=== PATIENT | female | born 1990 | race Caucasian/White ===

== ENCOUNTER 2022-09-28 18:05 | Inpatient (IN) ==
[2022-09-28] MEDS ORDERED: miSOPROStoL 200 MCG TABLET RECTAL PRN (18:34)
[2022-09-28] MEDS ORDERED: METHYLERGONOVINE 0.2 MG/1 ML AMP IM PRN (18:34)
[2022-09-28] MEDS ORDERED: ONDANSETRON 4 MG/2 ML VIAL IV PRN (18:34)
[2022-09-28] MEDS ORDERED: TRANEXAMIC ACID 1,000 MG in SODIUM CHLORIDE 0.9% 100 ML IV PRN (18:34)
[2022-09-28] MEDS ORDERED: BUTORPHANOL 2 MG/ML VIAL IV PRN (18:34)
[2022-09-28] MEDS ORDERED: MEPERIDINE 25 MG/1 ML VIAL IV PRN ×2 (18:34→18:54)
[2022-09-28] MEDS ORDERED: CARBOPROST TROMETHAMINE 250 MCG/ML AMP IM PRN (18:34)
[2022-09-28] MEDS ORDERED: OXYTOCIN/LR 20 UNIT/1,000 ML BAG IV ONE (18:34)
[2022-09-28] MEDS ORDERED: OXYTOCIN/LR 20 UNIT/1,000 ML BAG IV SCH (19:00)
[2022-09-28 19:26] LABS: Basophils % 0.4 % (0.0-0.8); Eosinophils # 0.1 10*3/uL (0.0-0.87); Eosinophils % 0.7 % (0.00-10.9); Hematocrit 39.2 VOL% (35.7-47.0); Hemoglobin 12.9 GM/DL (12.0-16.0); Immature Granulocytes % 1.1 %; Lymphocytes # 2.7 10*3/uL (1.4-4.0); Lymphocytes % 29.9 % (21.3-54.2); Mean Corpuscular HGB Conc 32.9 GM/DL (32-36); Mean Platelet Volume 14.2 FL (9.6-12.0); Monocytes # 0.6 10*3/uL (0.11-0.8); Monocytes % 6.2 % (1.7-12.7); Neutrophils % 61.7 % (38.7-73.9); Platelet Count 125 T/CUMM (130-400); Red Blood Count 4.61 MC/CUMM (3.8-5.5); Red Cell Distribution Width 13.2 % (9.3-17.3); White Blood Count 8.9 T/CUMM (4-12)
[2022-09-28] MEDS: LACTATED RINGERS 1,000 ML IV SCH (23:08)
[2022-09-29] MEDS ORDERED: ONDANSETRON 4 MG/2 ML VIAL IV ONE (00:54)
[2022-09-29] MEDS ORDERED: ePHEDrine 50 MG/ML VIAL IV PRN (00:54)
[2022-09-29] MEDS ORDERED: PROMETHAZINE 25 MG/1 ML VIAL IM ONE (00:54)
[2022-09-29] MEDS ORDERED: FAMOTIDINE 20 MG/2 ML VIAL IV ONE (00:54)
[2022-09-29] MEDS ORDERED: NALOXONE 0.4 MG/ML VIAL IV PRN (00:54)
[2022-09-29] MEDS ORDERED: CITRIC ACID/SODIUM CITRATE 30 ML UDCUP PO ONE (00:54)
[2022-09-29] MEDS ORDERED: hydrOXYzine HCL 25 MG/1 ML VIAL IM PRN (00:54)
[2022-09-29] MEDS ORDERED: diphenhydrAMINE 50 MG/1 ML VIAL IV PRN ×2 (00:54)
[2022-09-29] MEDS: fentaNYL 2 MCG/ROPIV 0.2% EPID 100 ML EPIDURAL SCH ×3 (01:50→13:21)
[2022-09-29] MEDS: LACTATED RINGERS 1,000 ML IV SCH ×2 (01:54→08:10)
[2022-09-29] MEDS ORDERED: ROPIVACAINE 0.5% 30 ML VIAL ONE (02:05)
[2022-09-29] MEDS ORDERED: fentaNYL 100 MCG/2 ML VIAL ONE ×3 (02:06→16:40)
[2022-09-29] MEDS ORDERED: TERBUTALINE 1 MG/1 ML VIAL SUBCUT ONE (02:24)
[2022-09-29] MEDS ORDERED: TRANEXAMIC ACID 1,000 MG/10 ML VIAL ONE (07:18)
[2022-09-29] MEDS ORDERED: miSOPROStoL 200 MCG TABLET ONE (07:18)
[2022-09-29] MEDS ORDERED: CARBOPROST TROMETHAMINE 250 MCG/ML AMP IM ONE (07:19)
[2022-09-29] MEDS ORDERED: OXYTOCIN/LR 20 UNIT/1,000 ML BAG IV ONE ×2 (07:19→20:35)
[2022-09-29] MEDS ORDERED: SODIUM CHLORIDE 0.9% 0 ML IV ONE (07:19)
[2022-09-29] MEDS ORDERED: METHYLERGONOVINE 0.2 MG/1 ML AMP ONE (07:19)
[2022-09-29] MEDS ORDERED: ceFAZolin 2,000 MG/50 ML DUPLEX IV ONE (16:12)
[2022-09-29] MEDS ORDERED: buprenorphine HCL 0.3 MG/ML VIAL ONE (16:29)
[2022-09-29] MEDS ORDERED: METOCLOPRAMIDE 10 MG/2 ML VIAL ONE (16:31)
[2022-09-29] MEDS ORDERED: ONDANSETRON 4 MG/2 ML VIAL ONE (16:31)
[2022-09-29] MEDS ORDERED: LIDOCAINE MPF 2% /EPI 20 ML VIAL ONE (16:31)
[2022-09-29] MEDS ORDERED: MIDAZOLAM 2 MG/2 ML VIAL ONE ×2 (16:40→16:50)
[2022-09-29] MEDS ORDERED: OXYTOCIN 10 UNIT/ML VIAL ONE (16:49)
[2022-09-29 16:58] LABS: Cord Arterial Blood HCO3 19.4 MMOL/L
[2022-09-29 17:01] LABS: Cord Venous Blood HCO3 20.6 MMOL/L; Cord Venous Blood PCO2 56.7 MMHG; Cord Venous Blood PO2 23.6
[2022-09-29] MEDS ORDERED: ROCURONIUM 50 MG/5 ML VIAL IV ONE (17:08)
[2022-09-29] MEDS ORDERED: LACTATED RINGERS 1,000 ML IV ONE (17:08)
[2022-09-29] MEDS ORDERED: SUGAMMADEX 200 MG/2 ML VIAL IV ONE (17:16)
[2022-09-29] MEDS ORDERED: SEVOFLURANE 1 UNIT/15 MINUTE INH ONE (17:20)
[2022-09-29] MEDS: KETOROLAC 30 MG/1 ML VIAL IV SCH (18:23)
[2022-09-29] MEDS ORDERED: WITCH HAZEL PADS 100/JAR TOP PRN (20:35)
[2022-09-29] MEDS ORDERED: LANOLIN 50% CREAM 0.3 OZ TUBE TOP PRN (20:35)
[2022-09-29] MEDS ORDERED: BISACODYL 10 MG SUPP RECTAL PRN (20:35)
[2022-09-29] MEDS ORDERED: RHO(D) IMMUNE GLOBULIN 300 MCG SYRINGE IM ONE (20:35)
[2022-09-29] MEDS ORDERED: BENZOCAINE 20%/MENTHOL 0.5% SPRAY 56 GM CAN TOP PRN (20:35)
[2022-09-29] MEDS ORDERED: ONDANSETRON 4 MG/2 ML VIAL IV PRN (20:35)
[2022-09-29] MEDS ORDERED: MEASLES/MUMPS/RUBELLA VACCINE 0.5 ML VIAL SUBCUT ONE (20:35)
[2022-09-29] MEDS ORDERED: DIPH/TET/ACEL PERT BOOSTER VACCINE 0.5 ML VIAL IM ONE (20:35)
[2022-09-29] MEDS ORDERED: oxyCODONE/ACETAMINOPHEN 5-325 MG TABLET PO PRN (20:35)
[2022-09-29] MEDS ORDERED: ACETAMINOPHEN 325 MG TABLET PO PRN (20:35)
[2022-09-29] MEDS ORDERED: HYDROCORTISONE 2.5% RECTAL CREAM 30 GM TUBE TOP PRN (20:35)
[2022-09-29] MEDS: ACETAMINOPHEN 500 MG TABLET PO SCH (20:40)
[2022-09-29] MEDS: DOCUSATE SODIUM 100 MG CAPSULE PO SCH (20:40)
[2022-09-30] MEDS: KETOROLAC 30 MG/1 ML VIAL IV SCH ×2 (00:27→06:02)
[2022-09-30 05:52] LABS: Basophils # 0.1 10*3/uL (0.0-0.2); Basophils % 0.2 % (0.0-0.8); Eosinophils % 0.1 % (0.00-10.9); Hematocrit 31.6 VOL% (35.7-47.0); Hemoglobin 10.4 GM/DL (12.0-16.0); Immature Granulocytes % 0.5 %; Immature Granulocytes Absolute 0.11 #; Lymphocytes # 2.2 10*3/uL (1.4-4.0); Lymphocytes % 10.5 % (21.3-54.2); Mean Corpuscular HGB Conc 32.9 GM/DL (32-36); Mean Corpuscular Volume 86.8 FL (87-102); Monocytes # 0.7 10*3/uL (0.11-0.8); Monocytes % 3.6 % (1.7-12.7); Neutrophils % 85.1 % (38.7-73.9); Platelet Count 106 T/CUMM (130-400); Red Blood Count 3.64 MC/CUMM (3.8-5.5); Red Cell Distribution Width 13.2 % (9.3-17.3); White Blood Count 20.7 T/CUMM (4-12)
[2022-09-30 06:19] LABS: Eosinophils 1 % (0-10); Lymphocytes 9 % (20-55); Platelet Estimate Decreased; Total Cells Counted 100
[2022-09-30] MEDS: ACETAMINOPHEN 500 MG TABLET PO SCH ×2 (06:46→06:47)
[2022-09-30] MEDS: IBUPROFEN 800 MG TABLET PO PRN ×3 (09:08→20:08)
[2022-09-30] MEDS: DOCUSATE SODIUM 100 MG CAPSULE PO SCH ×2 (09:08→20:07)
[2022-09-30] MEDS ORDERED: RHO(D) IMMUNE GLOBULIN 300 MCG SYRINGE IM ONE (19:47)
[2022-09-30] MEDS ORDERED: SIMETHICONE CHEW 80 MG TABLET PO PRN (19:47)
[2022-10-01] MEDS: IBUPROFEN 800 MG TABLET PO PRN ×3 (02:30→18:30)
[2022-10-01] MEDS: oxyCODONE/ACETAMINOPHEN 5-325 MG TABLET PO PRN ×2 (06:30→18:31)
[2022-10-01 08:41] VITALS: BP 122/79
[2022-10-01] MEDS: DOCUSATE SODIUM 100 MG CAPSULE PO SCH (09:08)
== END 2022-10-01 21:32 | disposition home or self-care (01) | DRG 788 ==
LOC: N.LD 18:05 → N.OB 09-29 21:20
PROVIDERS: ADMIT Specialist; ATTEND Specialist
PROC: LDCSECT (ICD-10-PCS; 2022-09-29 16:30)